=== PATIENT | female | born 1930 | race African-American/Black ===

== ENCOUNTER 2019-09-16 15:58 | Observation (INO) ==
[2019-09-16 16:23] LABS: Basophils % 0.6 % (0.0-0.8); Eosinophils % 0.4 % (0.00-10.9); Hematocrit 40.8 VOL% (35.7-47.0); Hemoglobin 12.4 GM/DL (12.0-16.0); Immature Granulocytes % 0.2 %; Immature Granulocytes Absolute 0.01 #; Lymphocytes # 1.2 10*3/uL (1.4-4.0); Lymphocytes % 23.4 % (21.3-54.2); Mean Corpuscular HGB Conc 30.4 GM/DL (32-36); Mean Corpuscular Volume 82.6 FL (87-102); Mean Platelet Volume 8.9 FL (9.6-12.0); Monocytes % 5.4 % (1.7-12.7); Platelet Count 202 T/CUMM (130-400); Red Blood Count 4.94 MC/CUMM (3.8-5.5); Red Cell Distribution Width 17.9 % (9.3-17.3); White Blood Count 5.2 T/CUMM (4-12)
[2019-09-16 16:33] LABS: PT Patient Result 10.5 SECS (9.6-12.2); Partial Thromboplastin Time 25.3 SECS (20.8-36.0)
[2019-09-16 16:49] LABS: Albumin 3.4 G/DL (3.4-5.0); Bilirubin,Total 1.4 MG/DL (0.2-1.0); Calcium 8.5 MG/DL (8.5-10.1); Total Protein 6.8 G/DL (6.4-8.3)
[2019-09-16] MEDS ORDERED: ENOXAPARIN 100 MG/ML SYRINGE SUBCUT STA (17:12)
[2019-09-16] MEDS ORDERED: ENOXAPARIN 60 MG/0.6 ML SYRINGE ONE (17:32)
[2019-09-16] MEDS ORDERED: NITROGLYCERIN SL 0.4 MG TABLET SL PRN (18:00)
[2019-09-16] MEDS ORDERED: MAGNESIUM SULF RIDER 4 GM in PREMIX 1 EACH IV PRN (18:07)
[2019-09-16] MEDS ORDERED: oxyCODONE/ACETAMINOPHEN 5-325 MG TABLET PO PRN (18:07)
[2019-09-16] MEDS ORDERED: ACETAMINOPHEN 325 MG TABLET PO PRN (18:07)
[2019-09-16] MEDS ORDERED: ZALEPLON 5 MG CAPSULE PO PRN (18:07)
[2019-09-16] MEDS ORDERED: ONDANSETRON 4 MG/2 ML VIAL IV PRN ×2 (18:07)
[2019-09-16] MEDS ORDERED: BISACODYL 5 MG TABLET PO PRN (18:07)
[2019-09-16] MEDS ORDERED: MAGNESIUM SULF RIDER 2 GM in PREMIX 1 EACH IV PRN (18:07)
[2019-09-16] MEDS ORDERED: MAGNESIUM HYDROXIDE SUSP 30 ML UDCUP PO PRN (18:07)
[2019-09-16] MEDS ORDERED: MORPHINE 4 MG/1 ML VIAL IV PRN (18:07)
[2019-09-16] MEDS ORDERED: SODIUM CHLORIDE 0.45% 1,000 ML IV SCH (18:30)
[2019-09-16] MEDS ORDERED: hydrALAZINE 20 MG/1 ML VIAL IV PRN (18:36)
[2019-09-16] MEDS ORDERED: TICAGRELOR 90 MG TABLET PO SCH (21:00)
[2019-09-16] MEDS ORDERED: GABAPENTIN 600 MG TABLET PO SCH (21:00)
[2019-09-16] MEDS ORDERED: MONTELUKAST 10 MG TABLET PO SCH (21:00)
[2019-09-16] MEDS: APIXABAN 2.5 MG TABLET PO SCH (21:55)
[2019-09-17 06:21] LABS: Basophils # 0.1 10*3/uL (0.0-0.2); Eosinophils # 0.1 10*3/uL (0.0-0.87); Eosinophils % 1.8 % (0.00-10.9); Hematocrit 38.8 VOL% (35.7-47.0); Hemoglobin 12.2 GM/DL (12.0-16.0); Immature Granulocytes % 0.2 %; Immature Granulocytes Absolute 0.01 #; Lymphocytes # 1.9 10*3/uL (1.4-4.0); Lymphocytes % 38.4 % (21.3-54.2); Mean Corpuscular HGB Conc 31.4 GM/DL (32-36); Mean Corpuscular Volume 80.8 FL (87-102); Mean Platelet Volume 9.9 FL (9.6-12.0); Monocytes % 9.2 % (1.7-12.7); Neutrophils % 49.4 % (38.7-73.9); Platelet Count 197 T/CUMM (130-400); Red Cell Distribution Width 17.6 % (9.3-17.3); White Blood Count 4.9 T/CUMM (4-12)
[2019-09-17 06:43] LABS: Albumin 3.1 G/DL (3.4-5.0); Bilirubin,Total 1.8 MG/DL (0.2-1.0); Calcium 8.4 MG/DL (8.5-10.1); Osmolality,Calculated 271.7 MOS/KG (273-304); Risk Ratio 1.42; Total Protein 6.7 G/DL (6.4-8.3); VLDL CHOLESTEROL 13.8 MG/DL
[2019-09-17] MEDS ORDERED: predniSONE 5 MG TABLET PO SCH (09:00)
[2019-09-17] MEDS ORDERED: PANTOPRAZOLE 40 MG TABLET PO SCH (09:00)
[2019-09-17] MEDS ORDERED: ASPIRIN EC 81 MG TABLET PO SCH (09:00)
[2019-09-17] MEDS ORDERED: CALCIUM (CARBONATE)/VITAMIN D 500 MG-200 UNIT TABLET PO SCH (09:00)
[2019-09-17] MEDS ORDERED: POLYETHYLENE GLYCOL POWDER 17 GM PACK PO SCH (09:00)
[2019-09-17] MEDS ORDERED: ROSUVASTATIN 10 MG TABLET PO SCH (09:00)
[2019-09-17] MEDS ORDERED: RANOLAZINE 500 MG TABLET PO SCH (12:55)
[2019-09-17] MEDS ORDERED: POTASSIUM CHLORIDE 20 MEQ TABLET PO ONE (12:56)
[2019-09-17] MEDS: APIXABAN 2.5 MG TABLET PO SCH (14:03)
[2019-09-17 16:13] VITALS: BP 149/79
[2019-09-17] MEDS ORDERED: COENZYME Q10 100 MG CAPSULE PO SCH (21:00)
[2019-09-17] MEDS ORDERED: ROSUVASTATIN 20 MG TABLET PO SCH (21:00)
== END 2019-09-17 15:55 | disposition home or self-care (01) ==
LOC: N.ED 15:58 → N.EDINP 15:58 → N.2W 20:29
PROVIDERS: ADMIT Internal Medicine; ATTEND Internal Medicine

== ENCOUNTER 2019-09-26 16:52 | Observation (INO) ==
[2019-09-26 17:20] LABS: Basophils % 0.3 % (0.0-0.8); Eosinophils % 0.2 % (0.00-10.9); Hematocrit 37.8 VOL% (35.7-47.0); Hemoglobin 11.9 GM/DL (12.0-16.0); Immature Granulocytes % 0.3 %; Immature Granulocytes Absolute 0.02 #; Lymphocytes % 15.4 % (21.3-54.2); Mean Corpuscular HGB Conc 31.5 GM/DL (32-36); Mean Corpuscular Volume 80.6 FL (87-102); Mean Platelet Volume 8.5 FL (9.6-12.0); Neutrophils % 75.8 % (38.7-73.9); Platelet Count 199 T/CUMM (130-400); Red Blood Count 4.69 MC/CUMM (3.8-5.5); Red Cell Distribution Width 17.8 % (9.3-17.3); White Blood Count 6.6 T/CUMM (4-12)
[2019-09-26 17:30] LABS: PT Patient Result 10.8 SECS (9.6-12.2); Partial Thromboplastin Time 27.2 SECS (20.8-36.0)
[2019-09-26] MEDS ORDERED: ASPIRIN 325 MG TABLET PO STA (17:40)
[2019-09-26 17:44] LABS: Albumin 3.5 G/DL (3.4-5.0); Bilirubin,Total 1.5 MG/DL (0.2-1.0); Calcium 8.5 MG/DL (8.5-10.1); Osmolality,Calculated 266.4 MOS/KG (273-304); Total Protein 7.2 G/DL (6.4-8.3)
[2019-09-26] MEDS ORDERED: NITROGLYCERIN SL 0.4 MG TABLET SL PRN (19:07)
[2019-09-26] MEDS ORDERED: predniSONE 5 MG TABLET PO SCH (19:15)
[2019-09-26] MEDS ORDERED: ROSUVASTATIN 20 MG TABLET PO SCH (21:00)
[2019-09-26] MEDS ORDERED: MONTELUKAST 10 MG TABLET PO SCH (21:00)
[2019-09-26] MEDS ORDERED: GABAPENTIN 600 MG TABLET PO SCH (21:00)
[2019-09-26] MEDS: APIXABAN 2.5 MG TABLET PO SCH (22:13)
[2019-09-26] MEDS: COENZYME Q10 100 MG CAPSULE PO SCH ×2 (22:16→22:22)
[2019-09-26] MEDS: RANOLAZINE 500 MG TABLET PO SCH (22:18)
[2019-09-26] MEDS: CEFDINIR 300 MG CAPSULE PO SCH (22:19)
[2019-09-27 05:43] LABS: Basophils % 0.4 % (0.0-0.8); Eosinophils # 0.1 10*3/uL (0.0-0.87); Eosinophils % 1.2 % (0.00-10.9); Hematocrit 36.2 VOL% (35.7-47.0); Hemoglobin 11.5 GM/DL (12.0-16.0); Immature Granulocytes % 0.4 %; Immature Granulocytes Absolute 0.02 #; Lymphocytes # 1.1 10*3/uL (1.4-4.0); Lymphocytes % 18.8 % (21.3-54.2); Mean Corpuscular HGB Conc 31.8 GM/DL (32-36); Mean Corpuscular Volume 80.6 FL (87-102); Mean Platelet Volume 8.6 FL (9.6-12.0); Neutrophils % 68.2 % (38.7-73.9); Platelet Count 189 T/CUMM (130-400); Red Blood Count 4.49 MC/CUMM (3.8-5.5); Red Cell Distribution Width 18.1 % (9.3-17.3); White Blood Count 5.6 T/CUMM (4-12)
[2019-09-27 06:02] LABS: Calcium 8.3 MG/DL (8.5-10.1); Osmolality,Calculated 271.8 MOS/KG (273-304)
[2019-09-27] MEDS ORDERED: predniSONE 5 MG TABLET PO SCH (08:00)
[2019-09-27] MEDS: CEFDINIR 300 MG CAPSULE PO SCH (08:14)
[2019-09-27] MEDS: APIXABAN 2.5 MG TABLET PO SCH (08:14)
[2019-09-27] MEDS: RANOLAZINE 500 MG TABLET PO SCH (08:14)
[2019-09-27 08:43] VITALS: BP 118/66
[2019-09-27] MEDS ORDERED: ASPIRIN EC 81 MG TABLET PO SCH (09:00)
[2019-09-27] MEDS ORDERED: PANTOPRAZOLE 40 MG TABLET PO SCH (09:00)
[2019-09-27] MEDS ORDERED: POLYETHYLENE GLYCOL POWDER 17 GM PACK PO SCH (09:00)
[2019-09-27] MEDS ORDERED: CALCIUM (CARBONATE)/VITAMIN D 500 MG-200 UNIT TABLET PO SCH (09:00)
== END 2019-09-27 11:53 | disposition home or self-care (01) ==
LOC: N.ED 16:52 → N.EDINP 16:52 → N.TELES 20:41
PROVIDERS: ADMIT Internal Medicine; ATTEND Internal Medicine